=== PATIENT | male | born 1975 | race Hispanic/Latino ===

== ENCOUNTER 2020-10-25 10:09 | Emergency (ER) | payer OTHER ==
[~2020-10-25] VITALS: Ht 154.9 cm; Wt 85.0 kg
[2020-10-25 10:22] VITALS: BP 154/92
[2020-10-25] MEDS ORDERED: FLUORESCEIN OPHTH 1 MG STRIP OD ONE (11:30)
[2020-10-25] MEDS ORDERED: PROPARACAINE 0.5% OPHTH SOL 15ML OD ONE (11:30)
[2020-10-25] MEDS ORDERED: BOOSTRIX/ADACEL VACCINE (DIPHTH/PERTUSS/ACELL/TETANUS) 0.5ML SYR IM ONE (11:45)
[2020-10-25] MEDS ORDERED: OFLOXACIN 0.3 % (OCUFLOX) OPTH SOL 5ML OD ONE (11:45)
== END 2020-10-25 12:06 | disposition home or self-care (01) ==
LOC: M ED 10:09
DX: S05.01XA Injury of conjunctiva and corneal abrasion without foreign body, right eye, initial encounter (principal); X58.XXXA Exposure to other specified factors, initial encounter; Y92.89 Other specified places as the place of occurrence of the external cause